=== PATIENT | female | born 1930 | race Caucasian/White ===

== ENCOUNTER 2016-05-03 13:13 | Emergency (ER) | payer MEDICARE, OTHER ==
[~2016-05-03 13:13] MED LIST: ADVIL PO; ASAB PO; COZ50 PO; FISH OIL PO; IBU400 PO; KLOR-CON M2020 MEQ PO; LEXAPRO20 PO; LORTAB 5 PO; NITROSPRAY SL; NITROSTAT0.4 MG SL; NORV5 PO; PLAVIX PO; PRAVAC PO; PRAVACHOL40 MG PO; REST15 PO; RESTORIL30 MG PO; TOPXL25 PO; VITC500 PO; VITE200U PO
[2016-05-03 13:50] LABS: BASOPHILS 0.3 %; BASOPHILS ABSOLUTE 0.03 10/3/uL (0.0-0.16); EOSINOPHILS 2.6 %; EOSINOPHILS ABSOLUTE 0.26 10/3/uL (0.0-0.53); ER CBC TAT 0 Hrs 10 Mins; HEMATOCRIT 41.3 % (36.0-48.0); HEMOGLOBIN 13.7 g/dL (12.0-16.0); IMMATURE GRANULOCYTES 0.3 %; IMMATURE GRANULOCYTES ABSOLUTE 0.03 10/3/uL (0.0-0.11); LYMPHOCYTES 21.9 %; LYMPHOCYTES ABSOLUTE 2.21 10/3/uL (0.67-4.30); MANUAL DIFF NO %; MEAN CORPUS HGB CONC 33.2 g/dL (32.0-36.0); MEAN CORPUSCULAR HEMOGLOB 30.1 pg (26.0-34.0); MEAN CORPUSCULAR VOLUME 90.8 fL (80-100); MEAN PLATELET VOLUME 9.9 fL (9.2-13.0); MONOCYTES 10.8 %; MONOCYTES ABSOLUTE 1.09 10/3/uL (0.21-1.20); NEUTROPHILS 64.1 %; NEUTROPHILS ABSOLUTE 6.45 10/3/uL (2.02-8.40); PLATELET COUNT 240 10/3/uL (150-400); RED CELL COUNT 4.55 10/6/uL (4.0-5.6); WHITE BLOOD CELLS 10.1 10/3/uL (4.5-10.5)
[2016-05-03 13:55] LABS: ASCORBIC ACID (UR NOT ORDER) 40 (NEG); BILIRUBIN, URINE NEGATIVE (NEG); ER URINALYSIS TAT 0 Hrs 15 Mins; KETONE, URINE NEGATIVE (NEG); LEUKOCYTE ESTERASE(NOT OR NEG (NEG); NITRITE (URINE) NEG (NEG); WBC (NOT ORDERED) (RFLEX) 1 (0-5)
[2016-05-03 14:05] LABS: A/G RATIO 0.9 (0.7-1.9); ALBUMIN 3.4 G/DL (3.5-5.0); BUN (BLOOD UREA NITROGEN) 16 MG/DL (6-23); CALCIUM, SERUM 8.5 MG/DL (8.5-10.4); CHLORIDE, SERUM 105 MMOL/L (96-112); CO2 (CARBON DIOXIDE) 25 MMOL/L (24-34); CREATININE 0.82 MG/DL (0.55-1.02); GFR AFRICAN AMERICAN 76 ML/MIN (>=60); GFR NON AFRICAN AMERICAN 66 ML/MIN (>=60); GLOBULIN 3.7 G/DL (2.5-4.1); POTASSIUM, SERUM 4.1 MMOL/L (3.5-5.3); SGOT(AST) 18 U/L (5-40); SGPT(ALT) 15 U/L (5-65); SODIUM, SERUM 140 MMOL/L (135-148); TOTAL BILIRUBIN 1.1 MG/DL (0-1.2); TOTAL PROTEIN 7.1 G/DL (6.0-8.5)
[2016-05-03 14:06] LABS: ALKALINE PHOSPHATASE 82 U/L (45-117); GLUCOSE, SERUM 106 MG/DL (60-99)
[2016-05-03 16:11] LABS: INTERNATIONAL NORMAL RATI 1.1 UNITS (-); PARTIAL THROMBO TIME 29.8 SEC (22.5-37.2); PROTIME (NOT ORD) 14.5 SEC (12.0-14.5)
[2016-10-15] MEDS ORDERED: PLAVIX PO (23:30)
[2016-10-15] MEDS ORDERED: CELEXA10 PO (23:30)
[2016-10-15] MEDS ORDERED: VALTREX5 PO (23:30)
[2016-10-15] MEDS ORDERED: COZ50 PO (23:31)
[2016-10-15] MEDS ORDERED: TOPXL25 PO (23:31)
[2016-10-15] MEDS ORDERED: [UNRECOGNIZED DRUG - OTHER] PO (23:32)
[2016-10-15] MEDS ORDERED: NORV5 PO (23:32)
[2016-10-15] MEDS ORDERED: SYN.05 PO (23:32)
[2016-10-15] MEDS ORDERED: PRAVACHOL40 MG PO (23:32)
[2016-10-15] MEDS ORDERED: FOSAMAX70 MG PO (23:32)
[2016-10-15] MEDS ORDERED: VITAMIN D31000 UNIT PO (23:32)
[2016-10-15] MEDS ORDERED: REFRESH OPH (23:33)
[2016-10-15] MEDS ORDERED: VITE PO (23:33)
== END 2016-05-03 21:01 | disposition home or self-care (01) ==
LOC: ER 13:13
PROVIDERS: Emergency Medicine
DX: K62.5 Hemorrhage of anus and rectum (principal); F17.200 Nicotine dependence, unspecified, uncomplicated; Z95.0 Presence of cardiac pacemaker; Z90.710 Acquired absence of both cervix and uterus; Z79.899 Other long term (current) drug therapy
CPT/HCPCS: 71010; 74176; 80053; 81001; 83690; 85025; 85610; 85730; 93005; 99285